=== PATIENT | male | born 1980 | race Caucasian/White ===

== ENCOUNTER 2023-09-15 15:46 | Emergency (ER) | payer OTHER, SELFPAY ==
[2023-09-15 15:46] VITALS: BP 129/87; PULSE 60; RESP 18; TEMP 36.7; O2SAT 100; BMI 26.2
--- NOTE | 2023-09-15 15:55 | EDS_ITS ---
HPI History of Present Illness Chief Complaint: Chest Other Detail of Chief Complaint: Injury right lower ribs Informant: patient Onset/Context/Timing Onset: Hours (1 hour prior to presentation) Mechanism/Context: Blunt Injury and Fall Location of pain/injuries: - (Right lower ribs) Quality of Pain: Dull and Aching Location: Ribs 8 through 10 anterior axillary line, right side Current Severity: Mild Maximum Severity: Moderate Worsened by: Palpation and movement Relieved by: Nothing p Associated Symptoms Associated Symptoms: Negative for Parasthesias, Weakness, Loss of function, Inability to ambulate or Loss of consciousness Narrative Narrative: Patient is a 42-year-old male who was crouching. He fell hitting a 4 joint. He complains of pain right lower rib cage. He has pain with movement and breathing. He denies any other injury or trauma. He denies abdominal pain. [place] pain referred to her shoulder. Denies shortness of breath. He is on no medication specifically no antithrombotic or anticoagulant. Tetanus Immunization: 5-10 years Prior similar symptoms: No Recent Illness/Hospitalization: No PFSH PFSH Home Medications NK 09/15/23 [History Last Taken Unknown] Allergy/AdvReac Type Severity Reaction Status Date / Time No Known Allergies Allergy Verified 09/15/23 15:46 Social History (Updated 09/15/23 @ 15:[address] Jeremiah Pace MD) Smoking Status: Never smoker alcohol intake: never substance use type: does not use ROS ROS ED Eyes Eyes: Denies blurry vision or change in vision ENT ENT ED: Denies ear pain, rhinorrhea or sore throat Cardiovascular Cardiovascular: Reports chest pain; Denies palpitations Respiratory/Chest Respiratory/Chest: Denies cough, dyspnea or dyspnea on exertion Gastrointestinal Gastrointestinal: Denies nausea or vomiting Hematologic/Lymphatic Hematologic/Lymphatic: Denies easy bleeding or easy bruising EXAM Physical Exam Const Vital Signs: 09/15/23 15:46 Temperature 98.1 F Temperature Source Temporal Pulse Rate 60 Respiratory Rate 18 Blood Pressure 129/87 H Blood Pressure Mean 101 Pulse Ox 100 Positive well nourished and well developed Constitutional Narrative: Patient appears uncomfortable. General Appearance ED: well developed HEENT HEENT Narrative: Head is atraumatic normocephalic. Ears normal. Nares patent. There is no evidence of facial trauma. Eyes PERRL and EOMs intact bilaterally General Eye ED: Yes other Other Details: There is no subconjunctival hemorrhage. Neck full ROM Chest Wall inspection of chest normal and palpation of chest normal Chest Narrative: There is pain to palpation ribs 8 through 10 anterior axillary line on the rig ht. There is no crepitus subcutaneous air. Resp normal respiratory effort and clear to auscultation bilaterally Resp Narrative: Question of slight decreased breath sounds on the right compared to the left. Cardio regular rhythm, S1 normal heart sound, S2 normal heart sound and no murmurs GI normal to inspection, nondistended, normoactive bowel sounds, non-tender, non- distended and no masses GI Narrative: There is no tenderness right costal margin.. There is no discomfort with AP pressure to the chest. There is no hepatosplenomegaly. Back/Spine normal to inspection and no thoracic nor lumbar tenderness General Back: Negative for CVA tenderness Neuro oriented x3, CN's II-XII intact bilaterally and moves all extremities Psych mental status grossly normal and thought process normal Skin no rashes or lesions noted, skin turgor normal and no jaundice Skin Narrative: There is a area where patient struck the floor joint noted anterior axillary line on the right side near the right costal margin. MDM MDM MDM Narrative Medical decision making narrative: Differential diagnosis is rib contusion versus fractured rib. If patient has a low fractured rib there is an incidence of hepatic injury, 10 to 15%. If there is a fracture patient will require CT. Patient was offered pain medicine which she declined. Right rib detail was obtained to assess for pneumothorax and hemothorax. Fractured ribs are missed approximately 40% at times. Clinically he does not have a fractured rib. Radiography Chest X-Ray - ED: Read by ED Physician (5 view x-ray of the right ribs reveals no evidence of fracture, pneumothorax or hemothorax. Cardiac silhouette and size normal. Mediastinum is normal. There is no widening. ), Normal, Heart, Lungs, Mediastinum and Bony Structures Discharge Plan Triage Chief Complaint: Chest Other ED Provider: Jeremiah Pace Dx/Rx/DC Orders Clinical Impression: Contusion of ribs Instructions: ED Bruise, Rib Prescriptions: No Action NK Primary Care Provider: NOT,DEFINED Referrals: Katelynn Parekh DO [Med Staff - Active Staff] - 1 Week if not improving NOT,DEFINED [Primary Care Provider] - Activity Restrictions/Additional Instructions: 1. Apply ice 6-10 times a day 2. You may take 2 Aleve tablets every 12 hours for the next 3 to 5 days for y our discomfort Disposition Disposition: Home, Self Care
--- NOTE | 2023-09-15 16:10 | RAD_ITS ---
EXAM: XR RIGHT RIBS AND AP CHEST, 3 OR MORE VIEWS CLINICAL INDICATION: Pain to palpation 8-10h rib anterior axilary line TECHNIQUE: Frontal and oblique views of the right ribs and frontal view of the chest. COMPARISON: No relevant prior studies available. FINDINGS: LUNGS AND PLEURAL SPACES: No significant abnormality. No consolidation or edema. No pneumothorax. No effusion. HEART: No significant abnormality. Cardiac silhouette not enlarged. MEDIASTINUM: Central airways and mediastinal contour are unremarkable. BONES/JOINTS: No significant abnormality. No evidence of displaced rib fractures. RAD/Ribs Uni Min 3V w/PA Chest IMPRESSION: Negative chest and right ribs series. Electronically Signed: Shivam Martin DO at 16:29 EDT ,
== END 2023-09-15 16:27 | disposition home or self-care (01) ==
LOC: ED 16:25
PROVIDERS: Emergency Provider Emergency Medicine; Visit Provider Emergency Medicine
DX: S20.219A Contusion of unspecified front wall of thorax, initial encounter (principal); W01.10XA Fall on same level from slipping, tripping and stumbling with subsequent striking against unspecified object, initial encounter
CPT/HCPCS: 71101; 99282